=== PATIENT | female | born 1955 | race African-American/Black ===

== ENCOUNTER 2021-01-30 10:27 | Emergency (ER) | payer OTHER ==
[~2021-01-30] VITALS: Ht 160 cm; Wt 75.0 kg
[~2021-01-30 10:27] MED LIST: CLON0.1T PO; METH-37 PO; TRAM-48 PO
--- NOTE | 2021-01-30 11:56 | RAD ---
Chest radiograph 01/30/2021 11:31 AM INDICATION: Right hip pain after fall COMPARISON: 12/06/2018 TECHNIQUE: Frontal and lateral views of the chest are provided. FINDINGS: The cardiomediastinal silhouette is within normal limits. There are no pleural effusions. There is no pulmonary vascular congestion. There is no pneumothorax. The lungs are clear. No significant osseous abnormality is identified. IMPRESSION: No acute cardiopulmonary process. Electronically signed by: Latia Lou MD (01/30/2021 11:53 AM) [facility]
--- NOTE | 2021-01-30 11:57 | RAD ---
AP pelvis x-ray and AP and frog-leg lateral right hip x-rays HISTORY: Right hip pain after a fall. FINDINGS: No fracture, dislocation or arthritic change of the pelvis or right hip evident. No bone le sofia evident. Pelvic calcifications likely phleboliths. Lower lumbar facet spurring. IMPRESSION: No acute osseous injury. Electronically signed by: James Pineda MD (01/30/2021 11:55 AM) [id number]
--- NOTE | 2021-01-30 12:02 | RAD ---
M XR ELBOW COMPLETE 3+ VIEW 01/30/2021 11:31 AM INDICATION: Bilateral elbow pain and cough for 2 days COMPARISON: None available. TECHNIQUE: 3 views of the right and 3 views of the left elbow are provided. FINDINGS/ IMPRESSION: No significant elbow joint effusion involving either elbow. There is no acute fracture or dislocation . Joint spaces are maintained. Bone mineralization is within normal limits. Regional soft tissues are within normal limits. There is no soft tissue gas or osseous erosion. No radiopaque foreign body. Electronically signed by: Latia Lou MD (01/30/2021 11:59 AM) [facility]
[2021-01-30 12:59] LABS: BILIRUBIN,URINE NEGATIVE (NEG); CLARITY,URINE CLOUDY; COLOR,URINE YELLOW; NITRITE,URINE NEGATIVE (NEG); PH,URINE 5.5 (<5.0-8.0); PROTEIN,URINE NEGATIVE (NEG-TRACE); UROBILINOGEN,URINE 0.2 mg/dL (0.2 mg/dL)
--- NOTE | 2021-01-30 13:01 | ED.ADGEN ---
Past Medical History Past Medical History: High Cholesterol, Hypertension Additional Past Medical Histor: ECZEMA, BACK PAIN Past Surgical History: Other Additional Past Surgical Histo: [place]LE[place] ANKLE SURGERIES Smoking Status: Current Every Day Smoker Alcohol Use: Occasionally Drug Use: None General Adult EDM: Chief Complaint: MULTIPLE COMPLAINTS HPI: HPI: Patient is a 65 year old AA female who presents emergency department complaints of right hip, and bilateral elbow pain after trip and fall that happened on January 262020. She denies any head, neck, or back pain from a fall. Patient reports that she has also had a cough for the last 2 days and chills. Patient denies any known Covid exposure, she has not been immunized against COVID-19. Patient denies any fever, headache, nausea, vomiting, diarrhea, abdominal pain, or decreased taste/smell. She denies any shortness of breath or wheezing. Kelsy browne reports that the cough is mostly dry but she did cough up some clear sputum this morning. She denies any increased urinary frequency, or dysuria. She currently rates her pain a 4 out of 10 on the pain scale, she denies any alleviating factors, the pain is worse with palpation and movement. Review of Systems: Review of Systems: Complete ROS is negative unless otherwise noted in HPI. Allergies: Allergies: Allergies Coded Allergies Type Severity Reaction Last Updated Verified Penicillins Allergy Severe HIVES 01/20/16 Yes Physical Exam: PE: See Above Constitutional: Well developed, well nourished, no acute distress, non-toxic appearance. [] HENT: Normocephalic, atraumatic, bilateral external ears normal, nose normal. [] Eyes: PERRLA, EOMI, conjunctiva normal, no discharge. [] Neck: Normal range of motion, no stridor. [] Cardiovascular:Heart rate regular rhythm Lungs & Thorax: Respirations even and unlabored, no retractions, no respiratory distress Abdomen: soft, no tenderness Skin: Warm, dry, no erythema, no rash. [] Extremities: Right hip: Lateral tenderness to palpation, no obvious deformity, no shortening or rotation, no cyanosis, ROM intact, no edema. Bilateral elbows: Posterior tenderness to palpation without crepitus or obvious deformity, ROM intact, no edema, no erythema, no crepitus, 2+ radial pulses bilaterally [] Neurologic: Alert and oriented X 3, normal motor, normal sensory, no focal deficits noted. [] Psychologic: Affect normal, judgement normal, mood normal. [] Current Patient Data: Labs: Laboratory Tests Test 01/30/21 12:35 Urine Collection Type Unknown Urine Color Yellow Urine Clarity Cloudy Urine pH 5.5 (<5.0-8.0) Urine Specific [place] 1.025 (1.000-1.030) Urine Protein Negative mg/dL (NEG-TRACE) Urine Glucose (UA) Negative mg/dL (NEG) Urine Ketones (Stick) Negative mg/dL (NEG) Urine Blood Trace (NEG) Urine Nitrite Negative (NEG) Urine Bilirubin Negative (NEG) Urine Urobilinogen Dipstick 0.2 mg/dL (0.2 mg/dL) Urine Leukocyte Esterase Moderate (NEG) Urine RBC Rare /HPF (0-2) Urine WBC 5-10 /HPF (0-4) Urine Squamous Epithelial Cells Many /LPF Urine Bacteria Few /HPF (0-FEW) Urine Hyaline Casts Occasional /HPF Urine Mucus Mod /LPF Urine Trichomonas Present Vital Signs: Vital Signs Date Time Temp Pulse Resp B/P (MAP) Pulse Ox O2 Delivery O2 Flow Rate FiO2 01/30/21 11:00 98.1 87 16 175/80 (111) 97 Room Air 98.1 EKG: EKG: [] Heart Score: C/O Chest Pain: No Risk Scores: Score 0 - 3: 2.5% MACE over next 6 weeks - Discharge Home Score 4 - 6: 20.3% MACE over next 6 weeks - Admit for Clinical Observation Score 7 - 10: 72.7% MACE over next 6 weeks - Early Invasive Strategies Radiology/Procedures: Radiology/Procedures: PROCEDURE: ELBOW BILAT 3V M XR ELBOW COMPLETE 3+ VIEW 01/30/2021 11:31 AM INDICATION: Bilateral elbow pain and cough for 2 days COMPARISON: None available. TECHNIQUE: 3 views of the right and 3 views of the left elbow are provided. FINDINGS/ IMPRESSION: No significant elbow joint effusion involving either elbow. There is no acute fracture or dislocation. Joint spaces are maintained. Bone mineralization is within normal limits. Regional soft tissues are within normal limits. There is no soft tissue gas or osseous erosion. No radiopaque foreign body. Electronically signed by: Latia Lou MD (01/30/2021 11:59 AM) [facility] PROCEDURE: CHEST PA & LATERAL Chest radiograph 01/30/2021 11:31 AM INDICATION: Right hip pain after fall COMPARISON: 12/06/2018 TECHNIQUE: Frontal and lateral views of the chest are provided. FINDINGS: The cardiomediastinal silhouette is within normal limits. There are no pleural effusions. There is no pulmonary vascular congestion. There is no pneumothorax. The lungs are clear. No significant osseous abnormality is identified. IMPRESSION: No acute cardiopulmonary process. Electronically signed by: Latia Lou MD (01/30/2021 11:53 AM) [facility] PROCEDURE: HIP RIGHT 2V WITH PELVIS AP pelvis x-ray and AP and frog-leg lateral right hip x-rays HISTORY: Right hip pain after a fall. FINDINGS: No fracture, dislocation or arthritic change of the pelvis or right hip evident. No bone lesion evident. Pelvic calcifications likely phleboliths. Lower lumbar facet spurring. IMPRESSION: No acute osseous injury. Electronically signed by: James Pineda MD (01/30/2021 11:55 AM) [id number] Course & Med Decision Making: Course & Med Decision Making Pertinent Labs and Imaging studies reviewed. (See chart for details) 65-year-old female presented to emergency department with multiple complaints today. X-rays of the bilateral elbows the right hip, and the chest were negative for any acute findings, fractures, or dislocations. Her vital signs are stable throughout her emergency department stay. Urinalysis was concerning for trichomonas. Patient was prescribed Flagyl and advised to inform her sex partner of the infection as he would need treatment as well. Patient was advised to avoid having intercourse until a week head passed since both of them had completed their course of antibiotics. I encouraged the patient to follow-up with her primary care doctor in 1 to 2 days, prescription written for Eamon Dougherty. Patient may take [id number] cold medications as needed to help relieve her symptoms. I encouraged the patient to return to the ER if her symptoms worsened or fever develop. Patient verbalized an understanding of home care, medications, follow-up, and return to ED instructions and was in agreement with the plan of care. [] Dragon Disclaimer: Dragon Disclaimer: This electronic medical record was generated, in whole or in part, using a voice recognition dictation system. Departure Departure Impression: Primary Impression: infection, trichomonal Additional Impression: URI (upper respiratory infection) Disposition: 01 HOME / SELF CARE / HOMELESS Condition: STABLE Referrals: Haily REYNOSO MD (PCP) Patient Instructions: Trichomoniasis-Brief, Upper Respiratory Infection, Adult, [id number] Additional Instructions: Fill prescription(s) and use as directed. Recommend use of a Cool mist humidifier in room at bedtime. Alternate Tylenol or ibuprofen as needed for pain/fever. Increase clear fluids. Avoid airway triggers such as smoke, fragrance, dust, and pollen. Be sure to tell your sexual partner about your trichomonas infection, they will also need to be treated. Need to avoid intercourse for at least 7 days after both of you have completed the necessary antibiotics. Follow-up with your primary care doctor in 1-2 days, return to the ER if symptoms worsen or fever develops. Scripts Benzonatate (TESSALON PERLE) 100 Mg Capsule 1 CAP PO TID PRN for COUGH for 7 Days, #21 CAP 0 Refills Prov: SHIRLEY WILKERSON SALMON TROLL FISHER 01/30/21 Metronidazole (FLAGYL) 500 Mg Tablet 1 TAB PO BID, #14 TAB 0 Refills Prov: SHIRLEY WILKERSON SALMON TROLL FISHER 01/30/21 Problem Qualifiers Additional Impression: URI (upper respiratory infection) URI type: unspecified URI Qualified Codes: J06.9 - Acute upper respiratory infection, unspecified SHIRLEY WILKERSON SALMON TROLL FISHER Jan 30, 2021 13:01
[2021-01-30 13:10] LABS: BACTERIA,URINE FEW /HPF (0-FEW); HYALINE CASTS, URINE OCCASIONAL /HPF; RBC,URINE RARE /HPF (0-2); TRICHOMONAS,URINE PRESENT
[2021-01-30] MEDS ORDERED: BENZ100C PO (13:47)
[2021-01-30] MEDS ORDERED: METR500T PO (13:47)
[2021-01-30 14:00] VITALS: BP 170/87
== END 2021-01-30 14:20 | disposition home or self-care (01) ==
LOC: ER 10:27
DX: A59.8 Trichomoniasis of other sites (principal); J06.9 Acute upper respiratory infection, unspecified; M25.551 Pain in right hip; M25.522 Pain in left elbow; M25.521 Pain in right elbow; E78.00 Pure hypercholesterolemia, unspecified; I10 Essential (primary) hypertension; F17.200 Nicotine dependence, unspecified, uncomplicated; Z88.0 Allergy status to penicillin; W01.0XXA Fall on same level from slipping, tripping and stumbling without subsequent striking against object, initial encounter; Y93.89 Activity, other specified; Y92.89 Other specified places as the place of occurrence of the external cause; Y99.8 Other external cause status
CPT/HCPCS: 71046; 73502; 81001; 87086; 99284; 73080-50

== ENCOUNTER → 2021-08-17 | Outpatient (CLI) | payer OTHER ==
[~2021-08-17] MED LIST changes: +BENZ100C PO; +METR500T PO
--- NOTE | 2021-08-17 14:54 | RAD ---
EXAM: Lower extremity arterial Doppler sonogram with ankle-brachial indices (PACHECO). HISTORY: Decreased pulses. Peripheral vascular disease. TECHNIQUE: Doppler sonographic evaluation of the lower extremities was performed and pressure reading s were assessed. FINDINGS: Right brachial pressure: 150 mmHg Left brachial pressure: 152 mmHg Right ankle pressure (dorsalis pedis artery): 178 mmHg Right ankle pressure (posterior tibial artery): 173 mmHg Right PACHECO: 1.17 Left ankle pressure (dorsalis pedis artery): 163 mmHg Left ankle pressure (posterior tibial artery): 174 mmHg Left PACHECO: 1.14 IMPRESSION: Normal bilateral ankle-brachial indices. Electronically signed by: Molly Lazo MD (08/17/2021 2:52 PM) [id number]
== END ==
LOC: US 14:18
PROVIDERS: ATTEND Family Medicine
DX: R09.89 Other specified symptoms and signs involving the circulatory and respiratory systems (principal); M79.671 Pain in right foot
CPT/HCPCS: 93922